=== PATIENT | male | born 1990 | race Hispanic/Latino ===

== ENCOUNTER 2018-01-02 15:13 | Inpatient (IN) | payer BC ==
--- NOTE | 2018-01-02 16:49 | ED PDOC ---
HPI: Skin/Bite Injury History Per: Patient History/Exam Limitations: no limitations Onset/Duration Of Symptoms: Days Current Symptoms Are (Timing): Still Present Quality Of Symptoms: Painful Severity: Moderate Pain Scale Rating Of: 6 <Maya Luciano - Last Filed: 01/02/18 18:31> <Carmen Frankiln - Last Filed: 01/07/18 20:02> Time Seen by Provider: 01/02/18 16:31 Chief Complaint (Nursing): Abnormal Skin Integrity Additional Complaint(s): CC: pain in his buttock HPI: 27 YO male with no sig PMHx presents to [facility] ED for R buttock pain. Pt states that the pain started as discomfort in the area this weekend but it started becoming painful in the past few days. He went to his PMD today and was told to come to the ED. There is no trauma to the area, no bites. No po meds fo pain, pain worse when sitting down. Subjective fevers yesterday and today. Denies chills, dyspnea, palpatations, n/v/d/c. PMD: Dr. Kat PMHx: denies SurgHx: Nose surgery (used rib graft) SHx: denies smoking, social ETOH and denies illicit drug use FHx: heart disease Allergies: NKDA Meds: none (Maya Luciano) Supervising Attending Note <Maya Luciano - Last Filed: 01/02/18 18:31> - Supervising Attending Note The Documented history was done by the: Physician Sister Superior The documented physical exam was done by the: Physician Sister Superior - Attestation: I have personally seen and examined this patient.: Yes I have fully participated in the care of the patient.: Yes <Carmen Franklin - Last Filed: 01/07/18 20:02> - Notes: Notes:: patient seen and examined with significant cellulitis to the buttocks. Iv antibiotics started, consult for admission as well as infectious disease and surgery. Patient's pain improved. I agree with resident's treatment course and admission. (Carmen Franklin) Past Medical History - Medical History PMH: No Chronic Diseases - Family History Family History: States: CAD - Social History Current smoker - smoking cessation education provided: No Alcohol: Social Drugs: Denies <Maya Luciano - Last Filed: 01/02/18 18:31> <Carmen Franklin - Last Filed: 01/07/18 20:02> Vital Signs: Last Vital Signs Temp 98.4 F 01/04/18 13:02 Pulse 85 01/04/18 13:02 Resp 20 01/04/18 13:02 BP 119/73 01/04/18 13:02 Pulse Ox 95 01/04/18 13:02 - Home Medications Home Medications: Ambulatory Orders Medication Instructions Recorded Amoxicillin/Clavulanate [Augmentin 1 tab PO BID #14 tab 01/04/18 875 MG-125 MG] Lactobacillus Acidophilus 1 each PO BID #14 capsule 01/04/18 [Acidophilus Lactobacilli] Sulfamethoxazole/Trimethoprim 1 tab PO BID #14 tab 01/04/18 [Bactrim DS 800 mg-160 mg] - Allergies Allergies/Adverse Reactions: Allergies Allergy/AdvReac Type Severity Reaction Status Date / Time No Known Allergies Allergy Verified 01/02/18 15:30 Review of Systems Constitutional: Positive for: Fever. Negative for: Chills, Sweats Cardiovascular: Negative for: Chest Pain, Palpitations Respiratory: Negative for: Cough, Shortness of Breath Gastrointestinal: Negative for: Nausea, Vomiting, Abdominal Pain, Diarrhea Genitourinary Male: Negative for: Dysuria, Hematuria <Maya Luciano - Last Filed: 01/02/18 18:31> Physical Exam - Physical Exam Appears: Positive for: No Acute Distress Head Exam: Positive for: NORMAL INSPECTION Skin: Positive for: Normal Color (mildly flushed ) Cardiovascular/Chest: Positive for: Regular Rate, Rhythm. Negative for: Murmur Respiratory: Positive for: Normal Breath Sounds. Negative for: Crackles, Wheezing Gastrointestinal/Abdominal: Positive for: Normal Exam, Bowel Sounds, Soft. Negative for: Tenderness Back: Positive for: Normal Inspection. Negative for: L CVA Tenderness, R CVA Tenderness Rectal: Positive for: Tenderness (R gluteal fold tenderness, 7x3in area of erythema, firm to palpation ), Other (RN Linda in room ) Extremity: Positive for: Normal ROM. Negative for: Tenderness, Pedal Edema Neurologic/Psych: Positive for: Alert, Oriented <Maya Luciano - Last Filed: 01/02/18 18:31> - Laboratory Results Result Diagrams: 01/02/18 17:35 01/02/18 17:35 - ECG O2 Sat by Pulse Oximetry: 100 <Maya Luciano - Last Filed: 01/02/18 18:31> - Laboratory Results Result Diagrams: 01/04/18 06:00 01/03/18 04:50 <Carmen Franklin - Last Filed: 01/07/18 20:02> - Progress ED Course And Treament: 27 YO male with R buttock Cellulitis and abscess, with sepsis. VS sig for Tachycardia, T102.7. Pt meets criteria for Sepsis, with a qSOFA score of 0 -cbc, cmp, VBG, PT/PTT/INR -UA, Ucx, Bcx -EKG -CXR -IVF x 3 bags -Tylenol -Vanco 1x -Morphine 18:10--pt seen and reevaluated, states that pain has improved. Feels alot better Findings discussed with pt, no WBC, tachycardia improving EKG sig for sinus Tachycardia Blood work wnl, lactate 1.2 Spoke to PMD, Dr. Feliz Will admit pt to Tele for sepsis and Cellulitis/abscess ID and General surgery consulted as per PMD request Spoke to ID, Dr. Manuel; additional of Clinda and Zosyn added to abx regimen Dr. Barajas aware of Consult will see pt Plan discussed with pt, he agrees with plan. (Maya Luciano) Disposition - Patient ED Disposition Is Patient to be Admitted: Yes - Disposition Disposition Time: 18:32 <Maya Luciano - Last Filed: 01/02/18 18:31> <Carmen Franklin - Last Filed: 01/07/18 20:02> - Clinical Impression Clinical Impression: Sepsis, Cellulitis and abscess of buttock - Disposition Condition: STABLE
[2018-01-02] MEDS ORDERED: Clindamycin 300 MG in Sodium Chloride 0.9% 50 ML IVPB STA (16:53)
[2018-01-02] MEDS ORDERED: Sodium Chloride 0.9% 1,000 ML IV STA (16:55)
[2018-01-02] MEDS ORDERED: Vancomycin 1 g Inj ONE (17:18)
--- NOTE | 2018-01-02 17:34 | RAD ---
HISTORY: possible admission COMPARISON: None available. TECHNIQUE: Chest, one view. FINDINGS: Examination limited by habitus. LUNGS: No focal consolidation. Please note that chest x-ray has limited sensitivity for the detection of pulmonary masses. PLEURA: No significant pleural effusion identified. No definite pneumothorax . CARDIOVASCULAR: The cardiomediastinal silhouette appears within normal limits of size. OSSEOUS STRUCTURES: No acute osseous abnormality identified. VISUALIZED UPPER ABDOMEN: Unremarkable. OTHER FINDINGS: None. IMPRESSION: No focal consolidation, significant pleural effusion, or definite pneumothorax identified.
[2018-01-02] MEDS ORDERED: Vancomycin 1 GM in Sodium Chloride 0.9% 100 ML IVPB STA (17:45)
[2018-01-02 17:52] LABS: BASO % 0.2 % (0.0-2.0); EOS % 0.5 % (0.0-4.0); HEMOGLOBIN 13.6 g/dL (12.0-18.0); LYMPH # 0.5 K/uL (1.0-4.3); LYMPH % 6.5 % (20.0-40.0); MEAN CELL VOLUME 87.4 fl (80.0-94.0); MEAN CORPUSCULAR HEMOGLOBIN 30.1 pg (27.0-31.0); MEAN CORPUSCULAR HGB CONC 34.5 g/dL (33.0-37.0); MEAN PLATELET VOLUME 6.7 fl (7.2-11.7); MONO # 0.8 K/uL (0.0-0.8); NEUT # 6.9 K/uL (1.8-7.0); NEUT % 82.8 % (50.0-75.0); NRBC % 0.1 % (0.0-0.0); PLATELET COUNT 220 K/uL (130-400); RBC 4.51 Mil/uL (4.40-5.90); RED CELL DISTRIBUTION WIDTH 12.8 % (11.5-14.5); WHITE BLOOD COUNT 8.3 K/uL (4.8-10.8)
[2018-01-02 17:53] LABS: VENOUS BLOOD GAS BASE EXCESS 2.7 mmol/L (0.0-2.0); VENOUS BLOOD GAS PCO2 44 mmHg (40-60); VENOUS BLOOD GAS PO2 22 mm/Hg (30-55); VENOUS BLOOD PH 7.41 (7.32-7.43)
[2018-01-02 17:55] LABS: INR 1.3; PROTHROMBIN TIME 14.4 Seconds (9.8-13.1)
[2018-01-02 17:58] LABS: PARTIAL THROMBOPLASTIN TIME 31.1 Seconds (25.6-37.1)
[2018-01-02] MEDS ORDERED: Morphine 4 MG/ML VIAL ONE (18:00)
[2018-01-02 18:05] LABS: BLOOD UREA NITROGEN 13 mg/dl (9-20); GFR NON-AFRICAN AMERICAN > 60
[2018-01-02] MEDS ORDERED: Morphine 4 MG/ML VIAL IVP ONE (18:15)
[2018-01-02] MEDS: Sodium Chloride 0.9% 1,000 ML IV SCH ×2 (18:57→20:23)
[2018-01-02 19:06] LABS: BANDS 3 % (0-2); HYPOCHROMIC SLIGHT; LYMPHOCYTE 6 % (20-50); MONOCYTE 11 % (0-10); NEUTROPHIL 80 % (42-75); PLATELET ESTIMATE NORMAL (NORMAL); SMUDGE CELLS PRESENT; TOTAL CELLS COUNTED 100
--- NOTE | 2018-01-02 19:53 | CP.PCM.CON ---
History of Present Illness - History of Present Illness History of Present Illness: General Surgery Consult Re: R gluteal cleft cellulitis, possible abscess HPI: 27M presented to the ED C/O R buttock pain x 6 days and it became more painful and swollen in the past few days. Went to PMD today and was told to come to the ED. Pain worse when sitting down. 9-10/10 on pain scale prior to ED medication, now 6/10. + fevers. Denies chills, SOB, chest pain, nausea, emesis. Last BM was non bloody and normal, no pain with defecation. Denies Trauma. PMH: Denies PSH: Nose surgery FH: non contributory SH: No tobacco or drug use, Social EtOH All: NKDA Meds: Denies Review of Systems - Review of Systems All systems: reviewed and no additional remarkable complaints except (as per HPI ) Past Patient History - Past Social History Alcohol: Social Drugs: Denies - PSYCHIATRIC Hx Substance Use: No - SURGICAL HISTORY Hx Surgeries: Yes Other/Comment: Rhinoplasty using a small piece of the RT rib. - ANESTHESIA Hx Anesthesia: Yes Hx Anesthesia Reactions: No Meds Allergies/Adverse Reactions: Allergies Allergy/AdvReac Type Severity Reaction Status Date / Time No Known Allergies Allergy Verified 01/02/18 15:30 - Medications Medications: Current Medications Clindamycin Phosphate (Cleocin) 600 mg in 50 mls @ 50 mls/hr IVPB Q8 MIKY PRN Reason: Protocol Piperacillin Sod/Tazobactam (Sod 3.375 gm/ Sodium Chloride) 100 mls @ 100 mls/ hr IVPB Q8 MIKY PRN Reason: Protocol Physical Exam - Constitutional Appears: Non-toxic, No Acute Distress - Head Exam Head Exam: ATRAUMATIC, NORMOCEPHALIC - Eye Exam Eye Exam: EOMI. absent: Scleral icterus - ENT Exam ENT Exam: Mucous Membranes Moist Additional comments: trachea midline - Neck Exam Neck exam: Positive for: Full Rom. Negative for: Tenderness - Respiratory Exam Respiratory Exam: NORMAL BREATHING PATTERN. absent: Respiratory Distress - Cardiovascular Exam Cardiovascular Exam: Tachycardia, +S1, +S2 - GI/Abdominal Exam GI & Abdominal Exam: Soft. absent: Distended, Firm, Guarding, Rebound, Rigid, Tenderness - Rectal Exam Additional comments: No external hemorrhoids seen. R side of gluteal cleft with 5cm area of induration. no extention towards anus. No area of fluctuance, no pustular head - Extremities Exam Extremities exam: Positive for: normal capillary refill, pedal pulses present. Negative for: calf tenderness, pedal edema, tenderness - Back Exam Back exam: absent: CVA tenderness (L), CVA tenderness (R) - Neurological Exam Neurological exam: Alert, Oriented x3 - Skin Skin Exam: Dry, Warm Results - Vital Signs Recent Vital Signs: Last Vital Signs Temp 100.8 F H 01/02/18 18:21 Pulse 115 H 01/02/18 17:29 Resp 20 01/02/18 17:29 BP 128/85 01/02/18 17:29 Pulse Ox 100 01/02/18 18:34 - Labs Result Diagrams: 01/02/18 17:35 01/02/18 17:35 Labs: Laboratory Results - last 24 hr 01/02/18 01/02/18 01/02/18 17:35 17:35 17:35 WBC 8.3 RBC 4.51 Hgb 13.6 Hct 39.5 MCV 87.4 MCH 30.1 MCHC 34.5 RDW 12.8 Plt Count 220 MPV 6.7 L Neut % (Auto) 82.8 H Lymph % (Auto) 6.5 L [place] % (Auto) 10.0 Eos % (Auto) 0.5 Baso % (Auto) 0.2 Neut # (Auto) 6.9 Lymph # (Auto) 0.5 L [place] # (Auto) 0.8 Eos # (Auto) 0.0 Baso # (Auto) 0.0 Neutrophils % (Manual) 80 H Band Neutrophils % 3 H Lymphocytes % (Manual) 6 L Monocytes % (Manual) 11 H Smudge Cells Present Platelet Estimate Normal Hypochromasia (manual) Slight PT 14.4 H INR 1.3 APTT 31.1 pO2 VBG pH VBG pCO2 VBG HCO3 VBG Total CO2 VBG O2 Sat (Calc) VBG Base Excess VBG Potassium Glucose Lactate FiO2 Sodium 139 Potassium 3.9 Chloride 100 Carbon Dioxide 28 Anion Gap 15 BUN 13 Creatinine 1.0 Est GFR ( Amer) > 60 Est GFR (Non-Af Amer) > 60 Random Glucose 98 Calcium 9.0 Venous Blood Potassium 01/02/18 17:50 WBC RBC Hgb Hct MCV MCH MCHC RDW Plt Count MPV Neut % (Auto) Lymph % (Auto) [place] % (Auto) Eos % (Auto) Baso % (Auto) Neut # (Auto) Lymph # (Auto) [place] # (Auto) Eos # (Auto) Baso # (Auto) Neutrophils % (Manual) Band Neutrophils % Lymphocytes % (Manual) Monocytes % (Manual) Smudge Cells Platelet Estimate Hypochromasia (manual) PT INR APTT pO2 22 L VBG pH 7.41 VBG pCO2 44 VBG HCO3 25.4 VBG Total CO2 29.3 H VBG O2 Sat (Calc) 51.1 VBG Base Excess 2.7 H VBG Potassium 3.8 Glucose 95 Lactate 1.2 FiO2 21.0 Sodium 134.0 Potassium Chloride 98.0 Carbon Dioxide Anion Gap BUN Creatinine Est GFR ( Amer) Est GFR (Non-Af Amer) Random Glucose Calcium Venous Blood Potassium 3.8 Assessment & Plan - Assessment and Plan (Free Text) Assessment: 27M with R gluteal cleft cellulitis Plan: Warm compress to R gluteus Continue IV abx Monitor for fevers AM labs US in AM to look for abscess, I&D if present. D/W Dr. Karl Claros PGY4
[2018-01-02] MEDS: Clindamycin 600mg/50ml D5W 600 MG/50 ML VIAL IVPB SCH (19:54)
[2018-01-02 20:13] LABS: URINE BACTERIA RARE (<OCC); URINE BILIRUBIN NEGATIVE (NEGATIVE); URINE BLOOD NEGATIVE (NEGATIVE); URINE CLARITY CLEAR (Clear); URINE COLOR YELLOW (YELLOW); URINE GLUCOSE (UA) NEG (Normal); URINE LEUKOCYTE ESTERASE NEG Leu/uL (Negative); URINE PROTEIN NEGATIVE (NEGATIVE); URINE UROBILINOGEN 0.2-1.0 mg/dL (0.2-1.0)
[2018-01-02] MEDS ORDERED: Sodium Chloride 0.9% 1,000 ML IV SCH (21:00)
--- NOTE | 2018-01-02 21:03 | CP.PCM.PN ---
Subjective - Date & Time of Evaluation Date of Evaluation: 01/02/18 Time of Evaluation: 21:00 - Subjective Subjective: I D NOTES CASE DISCUSSED c ER PATIENT STARTED ON CLINDAMYCIN AND ZOSYN FOR DAY #1 Objective - Vital Signs/Intake and Output Vital Signs (last 24 hours): Temp Pulse Resp BP Pulse Ox 99.5 F 101 H 20 122/73 100 01/02/18 20:44 01/02/18 20:44 01/02/18 20:44 01/02/18 20:44 01/02/18 20:44 - Medications Medications: Current Medications Clindamycin Phosphate (Cleocin) 600 mg in 50 mls @ 50 mls/hr IVPB Q8 MIKY PRN Reason: Protocol Last Admin: 01/02/18 19:54 Dose: 50 mls/hr Piperacillin Sod/Tazobactam (Sod 3.375 gm/ Sodium Chloride) 100 mls @ 100 mls/ hr IVPB Q8 MIKY PRN Reason: Protocol Sodium Chloride (Sodium Chloride 0.9%) 1,000 mls @ 100 mls/hr IV .Q10H MIKY Stop: 01/03/18 20:47 - Labs Labs: 01/02/18 17:35 01/02/18 17:35 PT 14.4 Seconds (9.8-13.1) H 01/02/18 17:35 INR 1.3 01/02/18 17:35 APTT 31.1 Seconds (25.6-37.1) 01/02/18 17:35
[2018-01-03] MEDS: Piperacillin/Tazobact 3.375 GM in Sodium Chloride 0.9% 100 ML IVPB SCH ×5 (00:43→21:17)
[2018-01-03] MEDS: Clindamycin 600mg/50ml D5W 600 MG/50 ML VIAL IVPB SCH ×3 (01:20→17:24)
[2018-01-03 05:43] LABS: BASO % 0.3 % (0.0-2.0); EOS # 0.1 K/uL (0.0-0.7); HEMOGLOBIN 12.8 g/dL (12.0-18.0); LYMPH # 0.7 K/uL (1.0-4.3); LYMPH % 9.1 % (20.0-40.0); MEAN CELL VOLUME 87.7 fl (80.0-94.0); MEAN CORPUSCULAR HEMOGLOBIN 30.6 pg (27.0-31.0); MEAN CORPUSCULAR HGB CONC 34.8 g/dL (33.0-37.0); MEAN PLATELET VOLUME 6.8 fl (7.2-11.7); MONO # 0.9 K/uL (0.0-0.8); MONO % 11.6 % (0.0-10.0); NEUT # 5.8 K/uL (1.8-7.0); RBC 4.18 Mil/uL (4.40-5.90); RED CELL DISTRIBUTION WIDTH 12.7 % (11.5-14.5); WHITE BLOOD COUNT 7.4 K/uL (4.8-10.8)
[2018-01-03 06:20] LABS: ALB/GLOB RATIO 1.1 (1.0-2.1); ALBUMIN 3.5 g/dL (3.5-5.0); ALT/SGPT 58 U/L (21-72); AST/SGOT 30 U/L (17-59); BLOOD UREA NITROGEN 8 mg/dl (9-20); CALCIUM 8.6 mg/dL (8.4-10.2); GFR NON-AFRICAN AMERICAN > 60
--- NOTE | 2018-01-03 07:52 | CARD ---
APPROVED REPORT Date of service: 01/02/2018 EKG Measurement Heart [id number] <Conclusion> Sinus tachycardia Otherwise normal ECG
[2018-01-03] MEDS ORDERED: Chlorhexidine Gluconate 1 APPL/PKT TP ONE (08:15)
--- NOTE | 2018-01-03 08:37 | CP.PCM.PN ---
Subjective - Date & Time of Evaluation Date of Evaluation: 01/03/18 Time of Evaluation: 08:15 - Subjective Subjective: General Surgery Note for Dr. Barajas Patient seen and examined at bedside. No acute event overnight. Patient reports moderate to severe pain still. Erythema has spread from gluteus to perianal region. Patient is NPO. Patient lorraine be getting CT abd/pelvis today. He admits to flatus and BM. Denies fever/chills. Objective - Vital Signs/Intake and Output Vital Signs (last 24 hours): Temp Pulse Resp BP Pulse Ox 100.6 F H 107 H 20 118/69 98 01/03/18 08:00 01/03/18 08:00 01/03/18 08:00 01/03/18 08:00 01/03/18 08:00 - Medications Medications: Current Medications Acetaminophen (Tylenol 325mg Tab) 650 mg PO Q6 PRN PRN Reason: Fever >100.4 F Clindamycin Phosphate (Cleocin) 600 mg in 50 mls @ 50 mls/hr IVPB Q8 MIKY PRN Reason: Protocol Last Admin: 01/03/18 01:20 Dose: 50 mls/hr Piperacillin Sod/Tazobactam (Sod 3.375 gm/ Sodium Chloride) 100 mls @ 100 mls/ hr IVPB Q8 MIKY PRN Reason: Protocol Last Admin: 01/03/18 00:43 Dose: 100 mls/hr Sodium Chloride (Sodium Chloride 0.9%) 1,000 mls @ 100 mls/hr IV .Q10H MIKY Stop: 01/03/18 20:47 Last Admin: 01/02/18 22:00 Dose: 100 mls/hr Tramadol HCl (Ultram) 50 mg PO Q8H PRN PRN Reason: Pain, moderate (4-7) - Labs Labs: 01/03/18 04:50 01/03/18 04:50 PT 14.4 Seconds (9.8-13.1) H 01/02/18 17:35 INR 1.3 01/02/18 17:35 APTT 31.1 Seconds (25.6-37.1) 01/02/18 17:35 - Additional Findings Additional findings: - Constitutional Appears: Non-toxic, No Acute Distress - Head Exam Head Exam: ATRAUMATIC, NORMOCEPHALIC - Eye Exam Eye Exam: EOMI. absent: Scleral icterus - ENT Exam ENT Exam: Mucous Membranes Moist - Neck Exam Neck exam: Positive for: Full Rom. Negative for: Tenderness - Respiratory Exam Respiratory Exam: NORMAL BREATHING PATTERN. absent: Respiratory Distress - Cardiovascular Exam Cardiovascular Exam: Tachycardia, +S1, +S2 - GI/Abdominal Exam GI & Abdominal Exam: Soft. absent: Distended, Firm, Guarding, Rebound, Rigid, Tenderness - Rectal Exam Additional comments: No external hemorrhoids or skin tags seen. R side of gluteal cleft with 5cm area of induration with new extention towards anus. induration and bulge noted at 8 o'clock position on rectal wall No area of fluctuance, no pustular head - Extremities Exam Extremities exam: Positive for: normal capillary refill, pedal pulses present. Negative for: calf tenderness, pedal edema, tenderness - Back Exam Back exam: absent: CVA tenderness (L), CVA tenderness (R) - Neurological Exam Neurological exam: Alert, Oriented x3 - Skin Skin Exam: Dry, Warm Assessment and Plan - Assessment and Plan (Free Text) Assessment: 27M with R gluteal cleft cellulitis with possible catrachita-rectal abscess Plan: -NPO -Warm compress to R gluteus -IVF -IV abx -Monitor for fevers -f/u CT abd/pelvis with IV contrast -Further recommendations as per Dr. Karl Hallman PGY2
[2018-01-03] MEDS ORDERED: Lactated Ringer's 1,000 ML IV SCH (09:30)
[2018-01-03] MEDS ORDERED: Iohexol 300 100 ML IJ ONE (11:48)
[2018-01-03] MEDS ORDERED: Sodium Chloride 0.9% 50 ML IV ONE (11:48)
--- NOTE | 2018-01-03 13:24 | CT ---
Date of service: 01/03/2018 PROCEDURE: CT Abdomen and Pelvis with contrast HISTORY: evaluate for catrachita-rectal abscess COMPARISON: None. TECHNIQUE: Following the intravenous administration of iodinated contrast material, a CT examination of the abdomen and pelvis performed from the domes of the diaphragms to the symphysis pubis with reformatted datasets provided in axial, sagittal and coronal planes. Oral contrast was not administered as per referring physician request. Contrast dose: Omnipaque 300, 95 cc Radiation dose: Total exam DLP = 775.97 mGy-cm. This CT exam was performed using one or more of the following dose reduction techniques: Automated exposure control, adjustment of the mA and/or kV according to patient size, and/or use of iterative reconstruction technique. FINDINGS: LOWER THORAX: No pleural or pericardial effusion. Small hiatal hernia is encountered. LIVER: Diminished disease attenuation is seen throughout the liver without focal mass or intrahepatic biliary dilatation identified. GALLBLADDER AND BILE DUCTS: Unremarkable. PANCREAS: Unremarkable. No gross lesion or ductal dilatation. SPLEEN: Splenomegaly without underlying mass to 14.4 cm. ADRENALS: Unremarkable. No mass. KIDNEYS AND URETERS: No obstructive uropathy or solid mass bilaterally. No perinephric reaction bilaterally. A 1.5 cm simple cyst is identified at the lower pole left kidney measuring 14.5 Hounsfield units. VASCULATURE: Unremarkable. No aortic aneurysm. BOWEL: Stomach is decompressed and poorly evaluated. Evaluation of the gastrointestinal tract is limited due the lack of oral contrast administration. No bowel obstruction or local mesenteric reaction associated. Moderate fecal loading seen scattered throughout the large bowel. There is a 3.0 x 4.6 cm right perianal abscess with mild peripheral enhancement associated. Local reactive changes are identified in the medial buttocks. APPENDIX: Normal appendix. PERITONEUM: Fatty steatosis. Unremarkable. No free fluid. No free air. Renal cyst. LYMPH NODES: Unremarkable. No enlarged lymph nodes. BLADDER: Urinary bladder is distended but thin and smooth walled. No radiodense urolithiasis associated. REPRODUCTIVE: Mildly prominent prostate gland identified. BONES: No acute fracture. OTHER FINDINGS: None. IMPRESSION: Findings positive for 3.0 x 4.6 cm right perianal abscess with local reaction extending into the medial buttocks. Hepatic steatosis. Splenomegaly without focal mass appreciable. Small left renal cyst identified.
[2018-01-03] MEDS ORDERED: Propofol 10 mg/ml Inj (20 ML) ONE (14:48)
[2018-01-03] MEDS ORDERED: Lactated Ringer's 1,000 ML IV ONE (14:55)
--- NOTE | 2018-01-03 15:57 | PCM.SURG1 ---
Surgeon's Initial Post Op Note - Surgeon's Notes Surgeon: Dr. Barajas Tunnel Mucker: Phil PGY3, Lexx PGY2 Type of Anesthesia: General LMA Anesthesia Administered By: Dr. Jayesh Monroe Pre-Operative Diagnosis: Right Irina-rectal abscess Operative Findings: Irina-rectal abscess Post-Operative Diagnosis: Right Irina-rectal abscess Operation Performed: Incision and drainage of right Irnia-rectal abscess Specimen/Specimens Removed: wound culture Estimated Blood Loss: EBL {In ML}: 15 Blood Products Given: N/A Drains Used: No Drains Post-Op Condition: Good Date of Surgery/Procedure: 01/03/18 Time of Surgery/Procedure: 15:57
--- NOTE | 2018-01-03 16:50 | CP.PCM.PN ---
Subjective - Date & Time of Evaluation Date of Evaluation: 01/03/18 Time of Evaluation: 16:49 - Subjective Subjective: I D NOTE PATIENT IN OR WHEN VISITED CONTINUE CLINDAMYCIN/ZOSYN AWAIT CULTURE RESULTS Objective - Vital Signs/Intake and Output Vital Signs (last 24 hours): Temp Pulse Resp BP Pulse Ox 98.2 F 96 H 20 128/78 99 01/03/18 12:00 01/03/18 12:00 01/03/18 12:00 01/03/18 12:00 01/03/18 12:00 Intake and Output: 01/03/18 01/03/18 06:59 18:59 Intake Total 800 Balance 800 - Medications Medications: Current Medications Acetaminophen (Tylenol 325mg Tab) 650 mg PO Q6 PRN PRN Reason: Fever >100.4 F Last Admin: 01/03/18 08:51 Dose: 650 mg Hydromorphone HCl (Dilaudid) 0.5 mg IVP Q5M PRN PRN Reason: Pain, moderate (4-7) Stop: 01/03/18 17:46 Last Admin: 01/03/18 15:50 Dose: 0.5 mg Clindamycin Phosphate (Cleocin) 600 mg in 50 mls @ 50 mls/hr IVPB Q8 MIKY PRN Reason: Protocol Last Admin: 01/03/18 08:51 Dose: 50 mls/hr Piperacillin Sod/Tazobactam (Sod 3.375 gm/ Sodium Chloride) 100 mls @ 100 mls/ hr IVPB Q6 MIKY PRN Reason: Protocol Last Admin: 01/03/18 10:14 Dose: 100 mls/hr Lactated Ringer's (Lactated Ringer's) 1,000 mls @ 125 mls/hr IV .Q8H MIKY Ketorolac Tromethamine (Toradol) 30 mg IVP ONCE PRN PRN Reason: Pain, moderate (4-7) Stop: 01/03/18 17:45 Last Admin: 01/03/18 16:20 Dose: 30 mg Morphine Sulfate (Morphine) 2 mg IVP Q6 PRN PRN Reason: pain Tramadol HCl (Ultram) 50 mg PO Q8H PRN PRN Reason: Pain, moderate (4-7) Last Admin: 01/03/18 08:50 Dose: 50 mg - Labs Labs: 01/03/18 04:50 01/03/18 04:50 PT 14.4 Seconds (9.8-13.1) H 01/02/18 17:35 INR 1.3 01/02/18 17:35 APTT 31.1 Seconds (25.6-37.1) 01/02/18 17:35
[2018-01-03] MEDS: Lactated Ringer's 1,000 ML IV SCH (17:24)
--- NOTE | 2018-01-03 19:35 | CP.PCM.HP ---
History of Present Illness - History of Present Illness History of Present Illness: 27 yo admitted for R buttock abscess Present on Admission - Present on Admission Any Indicators Present on Admission: No Past Patient History - Past Medical History & Family History Past Medical History?: No - Past Social History Smoking Status: Never Smoked - HEMATOLOGICAL/ONCOLOGICAL Hx AIDS: No Hx Human Immunodeficiency Virus (HIV): No - MUSCULOSKELETAL/RHEUMATOLOGICAL Hx Falls: No - GENITOURINARY/GYNECOLOGICAL Hx Prostate Problems: No Hx Reproductive Disorders: No Hx Sexually Transmitted Disorders: No Hx Urinary Tract Infection: No - PSYCHIATRIC Hx Anxiety: No Hx Substance Use: No - SURGICAL HISTORY Hx Surgeries: Yes Other/Comment: Rhinoplasty using a small piece of the RT rib. - ANESTHESIA Hx Anesthesia: Yes Hx Anesthesia Reactions: No Hx Malignant Hyperthermia: No Has any member of the family had a problem w/ anesthesia?: No Meds Allergies/Adverse Reactions: Allergies Allergy/AdvReac Type Severity Reaction Status Date / Time No Known Allergies Allergy Verified 01/02/18 15:30 Physical Exam - Respiratory Exam Respiratory Exam: NORMAL BREATHING PATTERN - Cardiovascular Exam Cardiovascular Exam: REGULAR RHYTHM - GI/Abdominal Exam GI & Abdominal Exam: Normal Bowel Sounds Results - Vital Signs Recent Vital Signs: Last Vital Signs Temp 98.1 F 01/03/18 19:28 Pulse 87 01/03/18 19:28 Resp 20 01/03/18 19:28 BP 105/67 01/03/18 19:28 Pulse Ox 98 01/03/18 19:28 - Labs Result Diagrams: 01/03/18 04:50 01/03/18 04:50 Labs: Laboratory Results - last 24 hr 01/02/18 01/03/18 01/03/18 19:52 04:50 04:50 WBC 7.4 RBC 4.18 L Hgb 12.8 Hct 36.6 MCV 87.7 MCH 30.6 MCHC 34.8 RDW 12.7 Plt Count 205 MPV 6.8 L Neut % (Auto) 78.0 H Lymph % (Auto) 9.1 L [place] % (Auto) 11.6 H Eos % (Auto) 1.0 Baso % (Auto) 0.3 Neut # (Auto) 5.8 Lymph # (Auto) 0.7 L [place] # (Auto) 0.9 H Eos # (Auto) 0.1 Baso # (Auto) 0.0 Sodium 140 Potassium 4.5 Chloride 105 Carbon Dioxide 29 Anion Gap 11 BUN 8 L Creatinine 0.9 Est GFR ( Amer) > 60 Est GFR (Non-Af Amer) > 60 Random Glucose 99 Lactic Acid Calcium 8.6 Phosphorus 4.1 Magnesium 1.9 Total Bilirubin 0.7 AST 30 ALT 58 Alkaline Phosphatase 67 Total Protein 6.6 Albumin 3.5 Globulin 3.1 Albumin/Globulin Ratio 1.1 Urine Color Yellow Urine Clarity Clear Urine pH 6.0 Ur Specific [place] 1.009 Urine Protein Negative Urine Glucose (UA) Neg Urine Ketones Trace Urine Blood Negative Urine Nitrate Negative Urine Bilirubin Negative Urine Urobilinogen 0.2-1.0 Ur Leukocyte Esterase Neg Urine RBC (Auto) 1 Urine Microscopic WBC < 1 Urine Bacteria Rare 01/03/18 04:50 WBC RBC Hgb Hct MCV MCH MCHC RDW Plt Count MPV Neut % (Auto) Lymph % (Auto) [place] % (Auto) Eos % (Auto) Baso % (Auto) Neut # (Auto) Lymph # (Auto) [place] # (Auto) Eos # (Auto) Baso # (Auto) Sodium Potassium Chloride Carbon Dioxide Anion Gap BUN Creatinine Est GFR ( Amer) Est GFR (Non-Af Amer) Random Glucose Lactic Acid < 0.5 L Calcium Phosphorus Magnesium Total Bilirubin AST ALT Alkaline Phosphatase Total Protein Albumin Globulin Albumin/Globulin Ratio Urine Color Urine Clarity Urine pH Ur Specific [place] Urine Protein Urine Glucose (UA) Urine Ketones Urine Blood Urine Nitrate Urine Bilirubin Urine Urobilinogen Ur Leukocyte Esterase Urine RBC (Auto) Urine Microscopic WBC Urine Bacteria Assessment & Plan - Assessment and Plan (Free Text) Assessment: R buttock abscess/ Sepsis Admit to 4n IV ABX ID Surgery - Date & Time Date: 01/03/18 Time: 22:22
[2018-01-04] MEDS: Lactated Ringer's 1,000 ML IV SCH ×2 (00:11→09:02)
[2018-01-04] MEDS: Clindamycin 600mg/50ml D5W 600 MG/50 ML VIAL IVPB SCH ×2 (00:11→08:51)
[2018-01-04] MEDS: Piperacillin/Tazobact 3.375 GM in Sodium Chloride 0.9% 100 ML IVPB SCH ×2 (04:38→09:03)
[2018-01-04 07:17] LABS: BASO % 0.3 % (0.0-2.0); EOS # 0.2 K/uL (0.0-0.7); EOS % 3.1 % (0.0-4.0); HEMOGLOBIN 12.4 g/dL (12.0-18.0); LYMPH # 0.7 K/uL (1.0-4.3); LYMPH % 14.9 % (20.0-40.0); MEAN CELL VOLUME 87.1 fl (80.0-94.0); MEAN CORPUSCULAR HEMOGLOBIN 30.7 pg (27.0-31.0); MEAN CORPUSCULAR HGB CONC 35.2 g/dL (33.0-37.0); MEAN PLATELET VOLUME 6.4 fl (7.2-11.7); MONO # 0.7 K/uL (0.0-0.8); NEUT # 3.3 K/uL (1.8-7.0); NEUT % 67.7 % (50.0-75.0); RBC 4.04 Mil/uL (4.40-5.90); RED CELL DISTRIBUTION WIDTH 12.5 % (11.5-14.5); WHITE BLOOD COUNT 4.9 K/uL (4.8-10.8)
--- NOTE | 2018-01-04 07:58 | CP.PCM.PN ---
Subjective - Date & Time of Evaluation Date of Evaluation: 01/04/18 Time of Evaluation: 07:56 - Subjective Subjective: Surgery: Dr. Barajas Pt seen and examined. No acute overnight events. Pt states he's feeling a lot better and his pain is well controlled. He states he has been able to walk around and have a BM without difficulty. Denies fevers/chills or other complaints at this time. Objective - Vital Signs/Intake and Output Vital Signs (last 24 hours): Temp Pulse Resp BP Pulse Ox 98.3 F 89 16 122/78 97 01/04/18 04:42 01/04/18 04:42 01/04/18 04:42 01/04/18 04:42 01/04/18 04:42 - Medications Medications: Current Medications Acetaminophen (Tylenol 325mg Tab) 650 mg PO Q6 PRN PRN Reason: Fever >100.4 F Last Admin: 01/03/18 08:51 Dose: 650 mg Clindamycin Phosphate (Cleocin) 600 mg in 50 mls @ 50 mls/hr IVPB Q8 MIKY PRN Reason: Protocol Last Admin: 01/04/18 00:11 Dose: 50 mls/hr Piperacillin Sod/Tazobactam (Sod 3.375 gm/ Sodium Chloride) 100 mls @ 100 mls/ hr IVPB Q6 MIKY PRN Reason: Protocol Last Admin: 01/04/18 04:38 Dose: 100 mls/hr Lactated Ringer's (Lactated Ringer's) 1,000 mls @ 125 mls/hr IV .Q8H MIKY Last Admin: 01/04/18 00:11 Dose: 125 mls/hr Morphine Sulfate (Morphine) 2 mg IVP Q6 PRN PRN Reason: pain Last Admin: 01/04/18 06:39 Dose: 2 mg Tramadol HCl (Ultram) 50 mg PO Q8H PRN PRN Reason: Pain, moderate (4-7) Last Admin: 01/03/18 08:50 Dose: 50 mg - Labs Labs: 01/04/18 06:00 01/03/18 04:50 PT 14.4 Seconds (9.8-13.1) H 01/02/18 17:35 INR 1.3 01/02/18 17:35 APTT 31.1 Seconds (25.6-37.1) 01/02/18 17:35 - Constitutional Appears: Well, No Acute Distress - Head Exam Head Exam: ATRAUMATIC, NORMOCEPHALIC - Eye Exam Eye Exam: Normal appearance - ENT Exam ENT Exam: Mucous Membranes Moist - Respiratory Exam Respiratory Exam: NORMAL BREATHING PATTERN - Cardiovascular Exam Cardiovascular Exam: RRR - GI/Abdominal Exam GI & Abdominal Exam: Soft. absent: Tenderness - Rectal Exam Additional comments: perirectal incision on R buttock with madonna drain in place, secured with sutures at 2 sites. surrounding erythema improved from prior exam - Neurological Exam Neurological Exam: Alert, Awake, Oriented x3 - Skin Skin Exam: Dry, Intact Assessment and Plan - Assessment and Plan (Free Text) Assessment: 27M with perirectal abscess, s/p I&D; POD#1 Plan: - dressing change PRN - cont ABX per ID recs - pt states he has a flight this afternoon and would like to leave if possible. From surgical standpoint pt is ok for DC with madonna drain in place. Will need f/u next week in the office for drain removal - Dressing change was explained to pt and he feels comfortable doing dressing changes on his own - Stool softners PRN to avoid constipation - d/w Dr. Karl Villarreal
[2018-01-04 08:06] VITALS: PULSE 85; RESP 20
[2018-01-04 13:02] VITALS: BP 119/73; TEMP 98.4; O2SAT 95
--- NOTE | 2018-01-09 21:04 | OP ---
PROCEDURE DATE: 01/03/2018 SURGEON: Santi Barajas MD ASSISTANTS: Codie Villarreal DO; and Roe Hallman DO ANESTHESIA: Jayesh Monroe MD PREOPERATIVE DIAGNOSIS: Perirectal abscess. POSTOPERATIVE DIAGNOSIS: Perirectal abscess. PROCEDURE: Incision and drainage of perirectal abscess. DESCRIPTION OF OPERATION: The patient was anesthetized and placed in a lithotomy position. The buttocks and rectal area were prepped and draped in the usual sterile manner. The patient was noted to have marked swelling and erythema of the right buttock with fluctuance in the area approximately 4 cm from the anus, and incision was made in this area with drainage of a large quantity of foul-smelling pus. Digital rectal examination was performed and no additional rectal or ischial extension of the fluctuance was noted. Loculations within the cavity were broken up with passes of gauze and wound was irrigated. A three-quarter inch Emerson drain was positioned within the cavity and sutured to the edge of the skin incision to maintain patency of the drainage and a dry sterile dressing was applied. The patient tolerated the procedure well and transferred to recovery room in stable condition. Estimated blood loss for the procedure was 15 mL. Santi Barajas MD
== END 2018-01-04 14:05 | disposition home or self-care (01) | DRG 872 ==
LOC: H.ER 15:13 → H.ERHOLD 17:59 → H.TEL 21:29
PROVIDERS: ADMIT Family Medicine Geriatric Medicine; ATTEND Family Medicine Geriatric Medicine
PROC: 0D9P3ZZ Drainage of Rectum, Percutaneous Approach (ICD-10-PCS; principal; 2018-01-03 14:45)
DX: A41.9 Sepsis, unspecified organism (principal); L02.31 Cutaneous abscess of buttock; K61.1 Rectal abscess; L03.317 Cellulitis of buttock; I25.10 Atherosclerotic heart disease of native coronary artery without angina pectoris